=== PATIENT | male | born 1995 | race Caucasian/White ===

== ENCOUNTER 2021-10-31 18:51 | Emergency (ER) | payer OTHER ==
--- NOTE | 2021-10-31 22:25 | ED Physician Documentation ---
PD HPI HEADACHE - Stated complaint Stated Complaint: MIGRAINE - Chief complaint Chief Complaint: Neuro - History obtained from History obtained from: Patient - History of Present Illness Timing - onset: Enter time (01:00), Today Timing - details: Gradual onset, Constant, Waxing and waning Pain level now: 5 Worst headache ever?: Worst headache ever? Location: Other (predominantly right sided, but also bifrontal) Quality: Aching Associated symptoms: No: Fever, Stiff neck, Nausea, Vomiting, Weakness, Numbness, Syncope, Seizure, Eye pain, Vision changes Improved by: Nothing Worsened by: Other (no exacerbating factors) Contributing factors: No: Anticoagulated, Possible carbon monoxide, Hypertension, Recent illness, Trauma Similar symptoms before: Has not had sx before Recently seen: Not recently seen - Additional information Additional information: c/o headache , bifrontal but predominantly right-sided. Onset approximately 1 AM while at home awake at a computer. He has not had similar headaches in the past. Denies fever, denies n/v, Denies injury. Review of Systems Constitutional: reports: Reviewed and negative Eyes: reports: Reviewed and negative GI: denies: Nausea, Vomiting Neurologic: reports: Headache. denies: Generalized weakness, Focal weakness, Numbness, Head injury PD PAST MEDICAL HISTORY - Past Medical History Past Medical History: No - Past Surgical History Past Surgical History: Yes HEENT: Other - Present Medications Home Medications: Ambulatory Orders Medication Instructions Recorded Confirmed No Known Home Medications 10/31/21 10/31/21 - Allergies Allergies/Adverse Reactions: Allergies Allergy/AdvReac Type Severity Reaction Status Date / Time No Known Drug Allergies Allergy Verified 10/31/21 19:00 - Social History Does the pt smoke?: No Smoking Status: Never smoker Does the pt drink ETOH?: Yes Does the pt have substance abuse?: No - Immunizations Immunizations are current?: Yes PD ED PE NORMAL - Vitals Vital signs reviewed: Yes - General General: Alert and oriented X 3, No acute distress, Well developed/nourished - HEENT HEENT: PERRL, EOMI, Other (left conjunctival injection) - Neck Neck: Supple, no meningeal sign - Neuro Neuro: Alert and oriented X 3, 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 he has not been diagnosed with migraine headaches, has not had similar headaches in the past. He is in NAD on exam and has no neurologic c/o other than headache nor does he have any concerning findings on neurologic exam. I note left eye conjunctival injection, possibly suggesting a viral source. He is not COVID vaccinated and I recommended COVID / respiratory PCR swab which he declines. He says he gets weekly COVID testing and is due tomorrow for his next test. This is reasonable to defer to outpatient, as results would not exchange architect (except for indication of need to isolate per CDC guidelines). He has no meningismus. given lack of other neurologic c/o and no neurologic findings on exam, doubt intracranial mass or hemorrhage. I instructed him to follow up for his COVID test tomorrow as well as to seek reevaluation with his primary care provider, and encouraged him to return if symptoms worsen or if he develops concerning signs/symptoms such as fever, stiff neck, visual changes, AMS. He is given ibuprofen in ED (he had not taken anything for the headache at home), and given vicodin take-home pack in case the ibuprofen is ineffective Departure - Departure Disposition: 01 Home, Self Care Clinical Impression: Headache, Conjunctivitis Condition: Good Instructions: ED Conjunctivitis Nonspecific, ED Cephalgia Unspecified Follow-Up: VEENA Lynch [Provider Group] Forms: Activity restrictions Discharge Date/Time: 10/31/21 23:32
[2021-10-31] MEDS ORDERED: HYDROcod/ACET 5/325 Prepack 4 PO STA (23:20)
[2021-10-31] MEDS ORDERED: IBUPROFEN 600 MG TABLET PO STA (23:20)
[2021-10-31 23:28] VITALS: BP 137/86
== END 2021-10-31 23:32 | disposition home or self-care (01) ==
LOC: ED 18:51
DX: H10.9 Unspecified conjunctivitis (principal); R51.9 Headache, unspecified
CPT/HCPCS: 99282; 99283; A9270